=== PATIENT | male | born 1970 | race Hispanic/Latino ===

== ENCOUNTER 2016-06-18 23:52 | Emergency (ER) | payer SELFPAY ==
[2016-06-19] MEDS ORDERED: HYDROcodone/Acetaminophen 10/325 mg Tablet ONE (00:16)
[2016-06-19] MEDS ORDERED: Ibuprofen 800 MG TAB ONE (00:16)
--- NOTE | 2016-06-19 12:01 | RAD ---
RIGHT HIP 2 VIEWS: Date: 06/19/16 FINDINGS: No gross fracture was identified. On the AP view, there were a few irregularities along the inferior pubic ramus, but these are seen bilaterally. On the rotated view, there seems to be a small toshia o f bone just anterior to the inferior pubic ramus that might be a minimal cortical avulsion which edwin ht be newer. The proximal femur/hip itself appeared intact. The femoral head is smooth and the hip joint space is normal. A sliver of bone is seen along the rim of the acetabulum that is obviously not acute. It is either an accessory ossicle or old injury. The right SI joint appears normal. IMPRESSION: No major fracture seen, but cannot rule out a very tiny cortical avulsion from the anterior aspect o f the right inferior pubic ramus. CODE T. POS: HOME
== END 2016-06-19 00:53 | disposition home or self-care (01) ==
LOC: BURERS 23:52
DX: S39.011A Strain of muscle, fascia and tendon of abdomen, initial encounter (principal); I10 Essential (primary) hypertension; W19.XXXA Unspecified fall, initial encounter

== ENCOUNTER 2020-02-16 21:44 | Emergency (ER) | payer SELFPAY ==
[2020-02-16 22:18] LABS: #Basophils 0.1 thou/uL (0.0-0.2); #Eosinphils 0.2 thou/uL (0.0-0.7); #Lymphocytes 2.9 thou/uL (1.20-3.40); #Monocytes 0.7 thou/uL (0.11-0.59); #Neutrophils 5.8 thou/uL (1.40-6.50); %Basophils 1.1 % (0.0-1.0); %Eosinophils 2.4 % (0.0-10.0); %Lymphocytes 29.7 % (21.0-51.0); %Neutrophils 59.9 % (42.0-75.0); Hemoglobin 16.1 g/dL (14.0-18.0); Mean Corpuscular HGB CONC 33.6 g/dL (32.0-36.0); Mean Corpuscular Hemoglobin 32.5 pg (27.0-31.0); Mean Corpuscular Volume 96.9 fL (78.0-98.0); Mean Platelet Volume 8.2 fL (7.4-10.4); Platelet Count 220 thou/uL (130-400); RBC Distribution Width 11.5 % (11.5-14.5); Red Blood Cell (RBC) Count 4.96 mill/uL (4.70-6.10); White Blood Cell (WBC) Count 9.8 thou/uL (4.8-10.8)
[2020-02-16 22:36] LABS: ALT (SGPT) 34 U/L (8-55); AST (SGOT) 20 U/L (5-34); Albumin 4.2 g/dL (3.5-5.0); Alkaline Phosphatase 98 U/L (40-110); Anion Gap 14 mmol/L (10-20); BUN (Urea Nitrogen) 14 mg/dL (8.9-20.6); Bilirubin, Total 0.4 mg/dL (0.2-1.2); Calc. Creatinine Clearance 0 mL/min (70-130); Calcium 9.3 mg/dL (7.8-10.44); Carbon Dioxide 22 mmol/L (22-29); Chloride 105 mmol/L (98-107); Estimated GFR-MDRD Greater than 90; Globulin 3.2 g/dL (2.4-3.5); Glucose 105 mg/dL (70-105); Potassium 3.4 mmol/L (3.5-5.1); Protein, Total 7.4 g/dL (6.0-8.3); Sodium 138 mmol/L (136-145)
[2020-02-16] MEDS ORDERED: Ibuprofen 200 MG TAB ONE (22:55)
[2020-02-16] MEDS ORDERED: Cyclobenzaprine 10 MG TAB ONE (23:16)
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
== END 2020-02-16 23:20 | disposition home or self-care (01) ==
LOC: BURERS 21:44
DX: S29.011A Strain of muscle and tendon of front wall of thorax, initial encounter (principal); S16.1XXA Strain of muscle, fascia and tendon at neck level, initial encounter; S13.4XXA Sprain of ligaments of cervical spine, initial encounter; V59.9XXA Occupant (driver) (passenger) of pick-up truck or van injured in unspecified traffic accident, initial encounter
CPT/HCPCS: 36415; 71250; 72125; 80053; 85025; 94760